=== PATIENT | male | born 1945 | race Caucasian/White ===

== ENCOUNTER 2017-03-29 13:08 | Emergency (ER) | payer OTHER ==
--- NOTE | 2017-03-29 18:29 | ER ---
ADMIT: 03/29/2017 RM/LOC: ER [facility] MR#: [id number] [facility] [address] [place] [id number] JELANI HE [address] [place] [address] Emergency Room Report SEX: M AGE: 71 : 1945 DATE: 03/29/2017 TIME: 1308 hours. Please refer to my T-sheet for complete H and P. HISTORY OF PRESENT ILLNESS: Briefly, the patient comes in with right leg swelling and redness, really not painful, but it has been going on for about five to six days. It is getting worse. They are worried there could be a blood clot. He has a history of such. He has no pain. He had blood work done by the [facility], and he was sent over for evaluation. PHYSICAL EXAMINATION: VITAL SIGNS: Vital signs here are stable. His temp is 97. GENERAL: No acute distress. HEENT: Grossly normal. LUNGS: Clear. HEART: Regular. ABDOMEN: Soft. EXTREMITIES: Right lower extremity has 2+ edema. He has redness and warmth up to the mid thigh. No palpable cords. His left lower extremity has 1+ edema. EMERGENCY ROOM COURSE: Did a Doppler of his right lower extremity, no DVT. Gave him Rocephin 1 g IM, Keflex 500 p.o., Bactrim DS one p.o. His CBC was normal except hemoglobin 12.3. His chemistries were normal except a sodium 134, glucose 154, CO2 of 39. His UA was normal. ASSESSMENT: Right lower extremity cellulitis. PLAN: Rest, ice, elevate. Stop smoking. Return to the [facility] in 2 to 3 days for recheck. We will put him on Bactrim and Keflex. Malik Ross MD/ ranjan JOB #: [id number] CC: Malik Ross MD, Attending Physician
== END 2017-03-29 16:38 | disposition home or self-care (01) ==
LOC: ER 13:08
DX: L03.115 Cellulitis of right lower limb (principal); E11.9 Type 2 diabetes mellitus without complications; J44.9 Chronic obstructive pulmonary disease, unspecified; K21.9 Gastro-esophageal reflux disease without esophagitis; F17.210 Nicotine dependence, cigarettes, uncomplicated; Z90.49 Acquired absence of other specified parts of digestive tract; Z90.89 Acquired absence of other organs